=== PATIENT | male | born 1960 | race Caucasian/White ===

== ENCOUNTER 2018-11-14 05:48 | Day surgery (SDC) | payer OTHER ==
[~2018-11-14] VITALS: Ht 175.3 cm; Wt 77.8 kg
[2018-11-14 07:20] VITALS: Ht 175.3 cm; Wt 77.8 kg
[2018-11-14 07:26] VITALS: BP 138/79; PULSE 71; RESP 16
[2018-11-14] MEDS ORDERED: no meds. (07:28)
[2018-11-14] MEDS ORDERED: MIDAZOLAM 1 MG/ML 2 ML INJ ONE ×2 (08:43)
[2018-11-14] MEDS ORDERED: FENTAnyl 50 MCG/ML VIAL ONE (08:43)
[2018-11-14 09:00] VITALS: BP 121/75; RESP 15
== END 2018-11-14 10:18 | disposition home or self-care (01) ==
LOC: GIL 05:48
PROVIDERS: ATTEND Internal Medicine Gastroenterology
DX: Z12.11 Encounter for screening for malignant neoplasm of colon (principal); D12.0 Benign neoplasm of cecum; K64.8 Other hemorrhoids
CPT/HCPCS: 45380; 88305; J2250; J3010